=== PATIENT | female | born 1990 | race Hispanic/Latino ===

== ENCOUNTER 2021-02-20 06:54 | Day surgery (SDC) | payer BC ==
[2021-02-16 12:30] LABS: BASOPHILS % (AUTO) 0.6 % (0.0-5.0); EOSINOPHILS % (AUTO) 1.8 % (0.0-8.0); HEMATOCRIT 28.6 % (36-48); LYMPHOCYTES % (AUTO) 40.3 % (21.0-51.0); MEAN CORPUSCULAR HEMOGLOBIN 21.7 pg (27.0-33.0); MEAN CORPUSCULAR VOLUME 74.7 fL (79-99); MONOCYTES % (AUTO) 5.7 % (3.0-13.0); NEUTROPHILS % (AUTO) 51.4 % (40.0-77.0); PLATELET COUNT (AUTO) 392 K/uL (130-400); RED BLOOD CELL COUNT(AUTO) 3.83 MIL/uL (4.00-5.50); RED CELL DISTRIBUTION WIDTH 15.5 % (11.0-15.5)
[2021-02-18 13:04] VITALS: BP 115/63
[~2021-02-20] VITALS: Ht 160 cm; Wt 126.6 kg
[2021-02-20] VITALS (18 sets, daily range): BP systolic 105–131; BP diastolic 56–80
[~2021-02-20 06:54] MED LIST: METF-444 PO; PHEN-615 PO
[2021-02-20] MEDS ORDERED: 0.9%NACL 1000ML 1,000 ML IV ONE (07:09)
[2021-02-20] MEDS ORDERED: LIDOCAINE PF 100MG/5ML (2%) SYRINGE 5ML ONE (07:24)
[2021-02-20] MEDS ORDERED: MIDAZOLAM HCL 1 MG/ML 2ML VIAL ONE (07:24)
[2021-02-20] MEDS ORDERED: FENTANYL CITRATE PF 50 MCG/1 ML 2ML VIAL ONE (07:24)
[2021-02-20] MEDS ORDERED: ROCURONIUM 10MG/1ML SYR 10 MG/ML ML ONE (07:25)
[2021-02-20] MEDS ORDERED: PROPOFOL 10 MG/ML 20ML VIAL IV ONE (07:25)
[2021-02-20] MEDS ORDERED: CEFAZOLIN SODIUM 1 GM VIAL ONE (07:37)
[2021-02-20] MEDS: CEFAZOLIN SODIUM 1 GM VIAL ONE ×2 (07:47→08:40)
[2021-02-20] MEDS ORDERED: CALDOLOR 800MG+NS 250ML 250 ML IV ONE (07:56)
[2021-02-20] MEDS ORDERED: GLYCOPYRROLATE 1 MG/5 ML SYRINGE ONE (08:54)
[2021-02-20] MEDS ORDERED: NEOSTIGMINE 5MG/5ML SYR IV ONE (08:54)
[2021-02-20] MEDS ORDERED: ACETAMINOPHEN WITH CODEINE 1 TAB TAB ONE (10:17)
== END 2021-02-20 10:50 | disposition home or self-care (01) ==
LOC: ENDO 06:54 → DAH 06:54 → ENDO 10:50
PROVIDERS: ATTEND Obstetrics & Gynecology
DX: N92.1 Excessive and frequent menstruation with irregular cycle (principal); Z20.822 Contact with and (suspected) exposure to COVID-19; N85.4 Malposition of uterus; E66.01 Morbid (severe) obesity due to excess calories; E11.9 Type 2 diabetes mellitus without complications; D50.0 Iron deficiency anemia secondary to blood loss (chronic); F41.9 Anxiety disorder, unspecified; Z83.42 Family history of familial hypercholesterolemia; Z80.3 Family history of malignant neoplasm of breast; Z72.89 Other problems related to lifestyle; Z68.43 Body mass index [BMI] 50.0-59.9, adult; Z79.899 Other long term (current) drug therapy; Z98.890 Other specified postprocedural states
CPT/HCPCS: 36415 ×2; 58558; 82948 ×2; 84703; 85025; 86850 ×2; 86900 ×2; 86901 ×2; 86923; 87635; A4215; A4221; A4222; A4223; A4351; A4663; A6260; C9803; J0690 ×2; J1741; J2001; J2250; J2704; J2710; J3010; J3490; J7030 ×2